=== PATIENT | male | born 1970 | race Caucasian/White ===

== ENCOUNTER → 2016-12-14 | Outpatient (CLI) | payer OTHER | LOC: LAB 17:07 | DX: Z79.01 Long term (current) use of anticoagulants (principal); Z51.81 Encounter for therapeutic drug level monitoring ==

== ENCOUNTER → 2017-07-10 | Outpatient (CLI) | payer OTHER | LOC: LAB 17:12 | DX: Z79.01 Long term (current) use of anticoagulants (principal); Z51.81 Encounter for therapeutic drug level monitoring ==

== ENCOUNTER → 2017-07-18 | Outpatient (CLI) | payer OTHER | LOC: RT 16:23 | DX: I49.9 Cardiac arrhythmia, unspecified (principal) ==